=== PATIENT | female | born 1965 | race African-American/Black ===

== ENCOUNTER 2024-01-20 11:35 | Emergency (ER) | payer OTHER ==
[~2024-01-20] VITALS: Ht 157.5 cm; Wt 84.5 kg
[2024-01-20 12:29] VITALS: BP 159/81; PULSE 82; RESP 18; TEMP 98.3; O2SAT 95
[2024-01-20] MEDS ORDERED: MELO7.5T7 PO (13:20)
[2024-01-20] MEDS ORDERED: METH4PAK PO (13:20)
== END 2024-01-20 13:47 | disposition home or self-care (01) ==
LOC: ER 11:43
DX: S46.911A Strain of unspecified muscle, fascia and tendon at shoulder and upper arm level, right arm, initial encounter (principal); X58.XXXA Exposure to other specified factors, initial encounter; Y93.89 Activity, other specified; Y92.89 Other specified places as the place of occurrence of the external cause; Y99.8 Other external cause status